=== PATIENT | male | born 1950 | race Caucasian/White ===

== ENCOUNTER 2017-07-07 09:58 | Emergency (ER) | payer OTHER ==
[~2017-07-07] VITALS: Ht 160 cm; Wt 83.0 kg
[2017-07-07] MEDS ORDERED: ASA81 MG PO (10:11)
[2017-07-07] MEDS ORDERED: CARBIDOPA25 MG PO (10:12)
[2017-07-07] MEDS ORDERED: SIMVASTATIN40 MG PO (10:12)
[2017-07-07] MEDS ORDERED: LOSARTAN POTASS50 MG PO (10:13)
== END 2017-07-07 15:04 | disposition home or self-care (01) ==
LOC: ER 09:58
DX: R05 Cough (principal); B34.9 Viral infection, unspecified

== ENCOUNTER 2020-12-20 08:00 | Outpatient (CLI) | payer OTHER ==
[~2020-12-20 08:00] MED LIST: ASA81 MG PO; CARBIDOPA25 MG PO; LOSARTAN POTASS50 MG PO; SIMVASTATIN40 MG PO
== END 2020-12-20 08:30 | disposition home or self-care (01) ==
LOC: PPH VACUNA 08:00
PROVIDERS: ATTEND Emergency Medicine Pediatric Emergency Medicine
DX: Z23 Encounter for immunization (principal)